=== PATIENT | male | born 1945 | race Caucasian/White ===

== ENCOUNTER 2019-06-05 14:01 | Outpatient (CLI) | payer MEDICARE ==
[~2019-06-05] VITALS: Ht 172.7 cm; Wt 98.0 kg
[~2019-06-05 14:01] MED LIST: ALBU8.5H4 IH; FLO0.4C PO; FLO110IN IH; MELO-83 PO; METF500T PO; MONT10TA21 PO; NORCO10T PO; TRAZ-91 PO; TRIA0.1232 PO
[2019-06-05 14:26] LABS: TOTAL HEMOGLOBIN 16.3 G/dl (14.0-17.9)
[2019-06-05] MEDS ORDERED: albuterol 2.5 MG/3 ML nebule NEB PRN (14:55)
== END 2019-06-05 23:59 | disposition home or self-care (01) ==
LOC: RT 14:01
PROVIDERS: ATTEND Family Medicine
DX: J45.998 Other asthma (principal); J44.9 Chronic obstructive pulmonary disease, unspecified; R06.02 Shortness of breath
CPT/HCPCS: 85018; 94060; 94727; 94729; 94760